=== PATIENT | male | born 1945 | race Caucasian/White ===

== ENCOUNTER → 2016-11-16 | Outpatient (CLI) | payer MEDICARE | LOC: LAB 15:17 | DX: I48.91 Unspecified atrial fibrillation (principal); Z12.5 Encounter for screening for malignant neoplasm of prostate; E78.2 Mixed hyperlipidemia; I10 Essential (primary) hypertension ==

== ENCOUNTER → 2018-05-18 | Outpatient (CLI) | payer MEDICARE ==
[2018-05-18 17:38] LABS: EOS # 0.3 (0.04-0.40); EOS % 3.9 % (0.0-4.0); HEMATOCRIT 35.7 % (42.0-52.0); HEMOGLOBIN 11.9 g/dL (13.5-18.0); LYMPH# 1.7 (1.50-4.00); MEAN CELL VOLUME 90 fl (78-100); MEAN CORPUSCULAR HEMOGLOBIN 30 pg (27-31); MEAN CORPUSCULAR HGB CONC 33 g/dL (33-37); MEAN PLATELET VOLUME 9.7 fl (7.4-10.4); MONO # 0.6 (0.20-0.80); NEU # 4.2 (1.40-6.50); PLATELET COUNT 197 K/mm3 (130-400); RED BLOOD COUNT 3.95 M/mm3 (4.20-5.60); RED CELL DISTRIBUTION WIDTH 12.4 % (11.5-14.5); WHITE BLOOD COUNT 6.9 K/mm3 (4.8-10.8)
[2018-05-18 17:45] LABS: ALBUMIN 4.1 g/dL (3.5-5.0); BUN/CREATININE RATIO 16.6 (6.0-26.0); POTASSIUM 4.9 mmol/L (3.6-5.0); TOTAL BILIRUBIN 0.8 mg/dL (0.2-1.3); TOTAL PROTEIN 7.2 g/dL (6.3-8.2)
[2018-05-18 18:45] LABS: ERYTHROCYTE SEDIMENTATION RATE 15 mm/hr (0-20)
== END ==
LOC: LAB 16:35
PROVIDERS: Internal Medicine
DX: Z12.5 Encounter for screening for malignant neoplasm of prostate (principal); I48.91 Unspecified atrial fibrillation; I10 Essential (primary) hypertension; E78.5 Hyperlipidemia, unspecified

== ENCOUNTER → 2018-05-24 | Outpatient (CLI) | payer MEDICARE | LOC: RAD 13:00 | DX: Z09 Encounter for follow-up examination after completed treatment for conditions other than malignant neoplasm (principal); Z86.79 Personal history of other diseases of the circulatory system; Z98.890 Other specified postprocedural states; Z95.1 Presence of aortocoronary bypass graft ==

== ENCOUNTER → 2018-06-06 | Outpatient (CLI) | payer MEDICARE ==
[2018-06-06 12:57] LABS: CALCIUM 8.6 mg/dL (8.4-10.2); POTASSIUM 4.6 mmol/L (3.6-5.0)
== END ==
LOC: LAB 12:06
PROVIDERS: Internal Medicine
DX: I10 Essential (primary) hypertension (principal)

== ENCOUNTER 2020-05-07 21:59 | Observation (INO) | payer MEDICARE ==
[~2020-05-07] VITALS: Ht 177.8 cm; Wt 58.8 kg
[2020-05-07 22:12] VITALS: BP 98/61
[2020-05-07 22:17] LABS: EOS # 0.2 (0.04-0.40); EOS % 2.5 % (0.0-4.0); HEMATOCRIT 35.1 % (42.0-52.0); HEMOGLOBIN 11.5 g/dL (13.5-18.0); LYMPH# 1.6 (1.50-4.00); MEAN CELL VOLUME 93 fl (78-100); MEAN CORPUSCULAR HEMOGLOBIN 31 pg (27-31); MEAN CORPUSCULAR HGB CONC 33 g/dL (33-37); MEAN PLATELET VOLUME 9.4 fl (7.4-10.4); MONO # 0.8 (0.20-0.80); NEU # 7.1 (1.40-6.50); PLATELET COUNT 178 K/mm3 (130-400); RED BLOOD COUNT 3.77 M/mm3 (4.20-5.60); RED CELL DISTRIBUTION WIDTH 12.3 % (11.5-14.5); WHITE BLOOD COUNT 9.8 K/mm3 (4.8-10.8)
[2020-05-07 22:27] LABS: POTASSIUM 4.2 mmol/L (3.5-5.1)
[2020-05-07 22:28] LABS: CALCIUM 9.1 mg/dL (8.3-10.5)
[2020-05-07] MEDS ORDERED: CATAPRES0.1 M1 PO (22:29)
[2020-05-07] MEDS ORDERED: TOPROL XL100 MG PO (22:30)
[2020-05-07] MEDS ORDERED: ALDACTONE25 M1 PO (22:30)
[2020-05-07] MEDS ORDERED: PRINIVIL20 M1 PO (22:30)
[2020-05-07 23:44] VITALS: BP 106/65
[2020-05-07 23:47] VITALS: BP 106/65
[2020-05-08 02:09] VITALS: BP 109/67
[2020-05-08 05:53] VITALS: BP 112/69
[2020-05-08 10:03] VITALS: BP 113/72
[2020-05-08 10:32] LABS: POTASSIUM 4.1 mmol/L (3.5-5.1)
[2020-05-08 10:33] LABS: CALCIUM 8.6 mg/dL (8.3-10.5)
== END 2020-05-08 11:03 | disposition home or self-care (01) ==
LOC: ED 21:59 → MED/SURG 23:09
PROVIDERS: ADMIT Physician Assistant
DX: E86.0 Dehydration (principal); N17.9 Acute kidney failure, unspecified; R19.7 Diarrhea, unspecified; I10 Essential (primary) hypertension; F17.210 Nicotine dependence, cigarettes, uncomplicated; Z79.82 Long term (current) use of aspirin; Z79.899 Other long term (current) drug therapy
CPT/HCPCS: G0378; J7030

== ENCOUNTER → 2021-10-22 | Outpatient (CLI) | payer MEDICARE ==
[~2021-10-22] MED LIST: ALDACTONE25 M1 PO; CATAPRES0.1 M1 PO; PRINIVIL20 M1 PO; TOPROL XL100 MG PO
[2021-10-22 16:41] LABS: HEMATOCRIT 37.2 % (42.0-52.0); HEMOGLOBIN 11.8 g/dL (13.5-18.0); MEAN CELL VOLUME 96 fl (78-100); MEAN CORPUSCULAR HEMOGLOBIN 31 pg (27-31); MEAN CORPUSCULAR HGB CONC 32 g/dL (33-37); MEAN PLATELET VOLUME 9.6 fl (7.4-10.4); PLATELET COUNT 160 K/mm3 (130-400); RED BLOOD COUNT 3.87 M/mm3 (4.20-5.60); RED CELL DISTRIBUTION WIDTH 12.7 % (11.5-14.5)
[2021-10-22 17:01] LABS: POTASSIUM 4.7 mmol/L (3.5-5.1)
[2021-10-22 17:02] LABS: CALCIUM 9.4 mg/dL (8.3-10.5)
[2021-10-22 17:05] LABS: TOTAL BILIRUBIN 0.6 mg/dL (0.2-1.2)
[2021-10-22 17:49] LABS: LYMPHOCYTE 8 % (20-51); MONOCYTE 14 % (3-10); NEUTROPHILS 76 % (42-75)
[2021-10-22 17:50] LABS: HYPOCHROMIA 1+
[2021-10-22 18:02] LABS: ERYTHROCYTE SEDIMENTATION RATE 7 mm/hr (0-20)
== END ==
LOC: LAB 16:24
PROVIDERS: Internal Medicine
DX: Z12.5 Encounter for screening for malignant neoplasm of prostate (principal); Z12.11 Encounter for screening for malignant neoplasm of colon; I48.91 Unspecified atrial fibrillation; E78.2 Mixed hyperlipidemia; K90.9 Intestinal malabsorption, unspecified

== ENCOUNTER → 2021-11-24 | Outpatient (CLI) | payer MEDICARE | LOC: RAD 08:00 | DX: Z13.6 Encounter for screening for cardiovascular disorders (principal); I71.4 Abdominal aortic aneurysm, without rupture; Z95.828 Presence of other vascular implants and grafts ==

== ENCOUNTER 2023-07-11 09:08 | Emergency (ER) | payer MEDICARE ==
[~2023-07-11] VITALS: Ht 175.3 cm; Wt 55.4 kg
[2023-07-11 09:10] VITALS: BP 133/72
== END 2023-07-11 10:20 | disposition home or self-care (01) ==
LOC: ED 10:08
DX: R04.0 Epistaxis (principal)

== ENCOUNTER 2023-07-21 10:53 | Emergency (ER) | payer MEDICARE ==
[~2023-07-21] VITALS: Ht 175.3 cm; Wt 65.9 kg
[2023-07-21] MEDS ORDERED: ASPIRIN E.C. 8181 MG (11:05)
[2023-07-21 12:00] VITALS: BP 97/54
== END 2023-07-21 12:06 | disposition home or self-care (01) ==
LOC: ED 10:53
DX: R04.0 Epistaxis (principal); I48.91 Unspecified atrial fibrillation; F17.210 Nicotine dependence, cigarettes, uncomplicated; Z79.82 Long term (current) use of aspirin

== ENCOUNTER 2023-07-26 20:04 | Emergency (ER) | payer MEDICARE ==
[~2023-07-26] VITALS: Ht 175.3 cm; Wt 63.6 kg
[~2023-07-26 20:04] MED LIST changes: +ASPIRIN E.C. 8181 MG
[2023-07-26 20:10] VITALS: BP 135/79
== END 2023-07-26 21:41 | disposition home or self-care (01) ==
LOC: ED 20:04
DX: R04.0 Epistaxis (principal)

== ENCOUNTER 2024-05-03 22:46 | Emergency (ER) | payer MEDICARE ==
[2024-05-03] MEDS ORDERED: Oxymetazoline 0.05% Nasal Spray 30 ML BOTTLE NS ONE (23:15)
[2024-05-04 00:34] VITALS: BP 125/90
== END 2024-05-04 00:34 | disposition home or self-care (01) ==
LOC: ED 22:46
DX: R04.0 Epistaxis (principal)

== ENCOUNTER → 2024-05-18 | Outpatient (CLI) | payer MEDICARE | LOC: RAD 09:06 | DX: I65.23 Occlusion and stenosis of bilateral carotid arteries (principal); N18.30 Chronic kidney disease, stage 3 unspecified ==